=== PATIENT | female | born 1965 | race Caucasian/White ===

== ENCOUNTER → 2016-11-30 | Outpatient (CLI) | payer OTHER ==
[~2016-11-30] MED LIST: ALBUTEROL17 GM; ALPRAZOLAM PO; AMOXICILLIN500 M1 PO; ANTIVERT12.5 MG PO; BACTRIM DS TABL1 TA1 PO; BACTRIM DS TABL1 TAB PO; BENZONATATE PO; CENTRUM PO; CENTURY ULTIMA1 EAC3 PO; COLACE PO; FLEXERIL10 M1 PO; FLEXERIL10 MG PO; LORTAB 10-5001 EACH PO; LORTAB 7.51 TAB 7.5/ PO; METHOCARBAMOL500 MG PO; ORUDIS75 M1 PO; PREDNISONE50 MG PO; PROZAC PO; TESSALON200 MG PO; TYLENOL #3 PO; TYLENOL325 M1 PO; VICODIN 5/1 TAB 5/50 PO; VITAMIN B12-FO1 EACH PO; ZOLOFT100 MG
--- NOTE | ~2016-11-30 | MR113 ---
[facility] A Service of [facility] & [facility] RADIOLOGY TEXT RESULTS PATIENT: ASHLIE NORRIS [facility] : 67 UNIT #: [id number] AGE: [address]: Gucci Arboleda MD SEX: F ORDER DR: [id number] [facility] [address] [place], [place] [address] [id number] O MR#: [id number] #: [id number] NAME: ASHLIE NORRIS : 1965 SEX: F STUDY DATE/TIME: 11/30/2016 14:33 UNIT: [facility] ROOM: STUDY DESCRIPTION: MR Lumbar Wo Contrast Attending Physician: Gucci Arboleda M.D. Referring Physician: Gucci Arboleda M.D. Ordering Physician: Gucci Arboleda M.D. Primary Care Physician: Antonia Lacey M.D. MRI CENTER REPORT This report is preliminary unless electronic signature is present. EXAM MRI of the lumbar spine without contrast HISTORY Lymphoma, low-back pain for 2 years, left leg pain shoots from hip to ankle. Physical therapy has not helped. No history of cancer. COMMENT MRI of the lumbar spine performed without contrast using routine 1.5T imaging technique. Comparison study 01/18/2015. Redemonstrated is a 6-7 mm of grade 1 anterolisthesis of L4 on L5 and minimal anterolisthesis of L3 on L4. Likely subtle progression of anterolisthesis at L4-5. Intervertebral discs are desiccated L3-4, L4-5 to a lesser extent L5-S1 with mild loss of intervertebral disc height. Lumbar lordosis is exaggerated. Marrow endplate degenerative change most apparent at the L4-5 level. Conus medullaris terminates at L1-2 and is normal. On the coronal scanogram, there is mild levoconvex lower lumbar and dextroconvex upper lumbar scoliosis. At L1-2, mild bilateral facet degenerative change. No canal or foraminal impingement. At L2-3, moderate left, [id number] right-sided facet degenerative change. Mild broad-based posterior disc bulge more focal to the left side posterolaterally. Mild mass effect on the thecal sac and mild left inferior foraminal narrowing. [facility] A Service of [facility] RADIOLOGY TEXT RESULTS PATIENT: [facility]SH[facility] NOR[facility]IS [id number] [birth year] UNIT #: [id number] AGE: [address]: Gucci Arboleda MD SEX: F ORDER DR: L3-4: There is severe facet degenerative change bilaterally with severe ligamentum flavum thickening right greater than left. There is concentric disc bulge with superimposed broad posterior protrusion/small extrusion with annular fissure. Extruded disc material is remaining contiguous with the disc extending slightly cephalad from the disc. [id number] central canal stenosis with mass effect on the right lateral recess. Mild bilateral inferior foraminal narrowing. L4-5: Severe facet arthritis bilaterally accounts for the anterolisthesis of L4 on L5. There is severe ligamentum flavum thickening and there is fluid in the facet joints. There is a concentric disc bulge with superimposed broad posterior protrusion/extrusion with disc material remaining contiguous with the disc but extending cephalad from the level of the disc. The combination of findings result in severe canal stenosis with severe mass effect on the bilateral-lateral recesses. Disc material extends into the foramina and there is mild left and severe right-sided foraminal narrowing. L5-S1: Moderate right and [id number] left-side facet degenerative change with minimal concentric disc bulge. No canal stenosis. Mild left inferior foraminal narrowing. On comparison to the study from 2014, canal stenosis was present at L3-4 and L4-5 at that time. Again, I believe there is subtle progression of the anterolisthesis of L4 on L5 since the prior exam. IMPRESSION Lumbar degenerative changes detailed above with findings most significant appearing radiographically at the L4-5 and to a lesser extent the L3-4 levels. At the L4-5 level, there is about 6-7 mm grade 1 anterolisthesis of L4 on L5 secondary to facet arthritis and combination of findings at this level result in severe canal stenosis. Please refer to the [id number] description of findings and correlate with the patient's radicular symptoms. Dictated by... Brigitte A. Crecelius, M.D. THIS IS AN ELECTRONICALLY VERIFIED REPORT Brigitte Camp M.D. at 12/01/2016 4:59 PM RAMIN/marika TD: 12/01/2016 12:43 JOB #: [id number] MRI CENTER REPORT COPY
== END | disposition home or self-care (01) ==
LOC: CMRI 14:12
DX: M43.10 Spondylolisthesis, site unspecified (principal); M47.816 Spondylosis without myelopathy or radiculopathy, lumbar region; M43.16 Spondylolisthesis, lumbar region; M46.96 Unspecified inflammatory spondylopathy, lumbar region; M48.06 Spinal stenosis, lumbar region
CPT/HCPCS: 72148